=== PATIENT | female | born 1955 | race Caucasian/White ===

== ENCOUNTER 2023-03-13 07:15 | Outpatient (REF) | payer MEDICARE, SELFPAY ==
--- NOTE | ~2023-03-13 | CT_ITS ---
EXAMINATION: CT head/brain wo IV con CLINICAL INFORMATION: Reason for Exam CONGENITAL HYDROCEPHALUS COMPARISON: CT brain 02/24/2016 TECHNIQUE: Contiguous axial imaging was performed from the skull base to vertex without intravenous contrast. Sagittal and coronal reformatted images were obtained. This CT examination was performed using dose optimization techniques as appropriate, variously including the following: * Automated exposure control * Adjustment of mA and/or kV according to patient size (this includes techniques or standardized protocols for targeted exams where dose is matched to indication/reason for exam; i.e. extremities or head) Use of iterative reconstruction technique DLP: 871.7 mGy-cm mGy-cm FINDINGS: Left frontal approach and left parietal approach ventriculostomy catheters appear stable in position. Redemonstrated severe enlargement of the lateral and third ventricles with a normal appearance of the fourth ventricle. Ventricular caliber is not significantly changed compared to the prior examination. No midline shift. The basal cisterns are preserved. Stable dural thickening along the bilateral cerebral convexities. No acute intracranial hemorrhage or territorial loss of ibarra-white differentiation. Stable dysmorphic appearance of the right lateral ventricle frontal horn. Intracranial atherosclerotic calcification is noted. Bilateral intraocular lens replacements. The partially visualized paranasal sinuses have trace mucosal thickening. The mastoid air cells are well-aerated. Prior right parietal craniotomy. CT/CT head/brain wo IV con IMPRESSION: Stable shunted hydrocephalus involving the lateral and third ventricles.
== END 2023-03-13 07:16 | disposition home or self-care (01) ==
LOC: HO.CT 07:15
PROVIDERS: Visit Provider Psychiatry & Neurology Neurology
DX: Q03.9 Congenital hydrocephalus, unspecified (principal)
CPT/HCPCS: 70450

== ENCOUNTER 2025-01-12 12:51 | Outpatient (AMB) | payer MEDICARE, SELFPAY ==
--- NOTE | 2025-01-12 12:56 | A.OFFVIS_ITS ---
Intake Visit Reasons: last seen 2022 Allergies morphine (MORPHINE) Allergy (Unknown, Unverified 02/18/20 16:57) MAKES HER SICK/VOMITING HPI Comments Details: 69 years old woman with congenital hydrocephalus, status post ventriculoperitoneal shunting, and chronic cognitive dysfunction. 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 She was few months old when she had the first shunting procedure done. Over the years shunt has been re vised. I initially saw her in 2015 and then also in 2022 after which a head CT was repeated because of worsening of balance. It revealed stable severe hydrocephalus with a shunt. [facility] Medical History (Updated 01/12/25 @ 13:01 by Manny Kemp MD) Chronic static encephalopathy Congenital hydrencephalus Surgical History (Updated 01/12/25 @ 13:00 by Manny Kemp MD) S/P FIRE ALARM MECHANIC shunt Review of Systems Const Details: No seizures, no headaches. No change in gait. Bladder control is with leaks Physical Exam Neuro Other: Mental Status: Alert and oriented to person, place, and time. Normal attention. Normal spontaneous speech, fluency, and comprehension. Cranial Nerves: CN II: Visual serrano full to confrontation, visual acuity intact. CN III, IV, : Pupils equal, round, reactive to light and accommodation. Extraocular movements are normal. CN V: Facial sensation is normal. CN VII: Facial movements symmetrical. CN VIII: Hearing intact to bedside conversation is normal. CN IX, X: Palate elevates symmetrically. CN XI: Shoulder shrug and head turn symmetrical. CN XII: Tongue midline without atrophy or fasciculations. Gait: Walking w quad cane Extrapyramidal: Full facial expressions and blinking. No rigidity. Movements are appropriate with no tremor or abnormality. Speech: Normal; no dysarthria or tremor. Assessment & Plan Assessment & Plan (1) Congenital hydrencephalus: Comment: CT brain WO at [facility] [place] in 2022: Severe hydrocephalus with a shunt Code(s): Q03.9 - Congenital hydrocephalus, unspecified Category: Medical (2) S/P FIRE ALARM MECHANIC shunt: Code(s): Z98.2 - Presence of cerebrospinal fluid drainage device Category: Surgical (3) Chronic static encephalopathy: Code(s): G93.49 - Other encephalopathy Category: Medical Plan Impression: a: Congenital hydrocephalus b: S/P FIRE ALARM MECHANIC shunting c: Chronic static encephalopathy from above, moderate, stable. She is cared by her sister. d: Leg edema Rec: a: Common sense measures to avoid falls and accidents, like avoiding stairs b: Stay socially and physically active c: F/U with PCP for leg edema d: Permanently excused from Jury duty Rec: Orders: Orders Vitamin B12 and Folate Today Q03.9 - Congenital hydrocephalus, unspecified Coding Level of Care Code Tele Est Pt Level 4 (40943) Diagnoses Congenital hydrencephalus Q03.9 S/P FIRE ALARM MECHANIC shunt Z98.2 Chronic static encephalopathy G93.49
--- OUTSIDE RECORDS SUMMARY | 2025-01-12 13:32 | XMS_ITS ---
Author Name [facility] Organization Unknown Care Team Organization Name Specialty Phone Email Start Date End Da te [facility] KAYLEE HARRIS Primary Care 04/10/2022 01/20/20 24
--- OUTSIDE RECORDS SUMMARY | 2025-01-12 13:32 | XMS_ITS | Encounter Summary ---
Author Organization [facility] Address [id number] [place] [id number] Care Team Providers Care Supervisor Electric Name Role Phone Juan Carlos Nguyen MD Primary Care Provider [phone] Reason for Visit * Reason Onset Date Comments DME 01/12/2025 Encounter Details Date Type Department Care Team ([facility] st Contact Info) Description 01/12/2025 Telephone Internal Medicine - [place] [address] [facility] [address] [place] [id number] Juan Carlos Nguyen MD [address] [facility] [address] [place] [address] DME Social History Tobacco Use Types Packs/Day Years Used Date Smoking Tobacco: Never Smokeless Tobacco: Never Alcohol Use Standard Drinks/Week Comments No 0 (1 standard drink = 0.6 oz pur e alcohol) Comments Unknown Sex and Gender Information Value Date Recorded Sex Assigned at Not on file Legal Sex Female 4:05 PM EST Gender Identity Not on file Sexual Orientation Not on file documented as of this encounter Progress Notes * Merline Quintana MA - 01/12/2025 11:53 AM EDT Pended. * Va Faye - 01/12/2025 11:47 AM EDT Name of Product: Pull ups Specific information about product XL # Needed usual amount Reason patient is asking for this supply? incontinence Have you received this supply before? If yes , when?: yes. Has Patient been seen in the last 6 months yes If NO, Please book appt before DME can be ordered Have you discussed the need for this supply with a provider at a recent visit? no If yes, with who and when? No Child Life Appt necessary When completed, SHIPPING ADDRESS: [address] [place] [phone] Have you told the patient it will take 7-10 days for completion of this request? Yes documented in this encounter Plan of Treatment Upcoming Encounters Date Type Department Care Team (Late st Contact Info) Description 05/18/2025 11:00 AM EST Office Visit Internal Medicine - [place] [address] [phone] Juan Carlos Nguyen MD [address] [id number] documented as of this encounter Visit Diagnoses Diagnosis Urinary incontinence, unspecified type- Primary documented in this encounter Additional Health Concerns Assessment Noted Time PHQ-9 Depression Total Score: 9 10/02/19 25 11:49 AM EDT A fall risk assessment has been complete d for the patient 10/01/2024 11:44 AM EDT documented as of this encounter Care Teams Supervisor Electric Relationship Specialty Start Date End Date Juan Carlos Nguyen MD [address] [place] [phone] PCP - General Internal Medicine 09/04/21 documented as of this encounter
--- OUTSIDE RECORDS SUMMARY | 2025-01-12 13:32 | XMS_ITS | Clinical Summary ---
Author Organization [facility] Address [address] [place] [phone] Phone Care Team Providers Care Joint Sealer Name Role Phone Pcp, Unknown Primary Care Provider Unavailabl e Allergies Active Allergy Reactions Criticality Noted Date Comments Morphine 04/26/2023 Sulfa (Sulfonamide Antibiotics) 04/04 Medications * This document contains information received from the source organization and may not represent a complete record from that organization. melatonin 5 mg Tab Take 2 tablets (10 mg total) by mouth nightly at bedtime. 30 tablet 05/01/2023 Active pantoprazole (PROTONIX) 40 MG tablet Take 1 tablet (40 mg total) by mouth daily. 30 tablet 05/01/2023 Active traZODone (DESYREL) 100 MG tablet Take 1 tablet (100 mg total) by mouth nightly at bedtime. 30 tablet 05/01/2023 Active FLUoxetine (PROZAC) 20 MG capsule Take 1 capsule (20 mg total) by mouth daily. 30 capsule 05/02/2023 Active Active Problems Problem Noted Date Diagnosed Date Major depressive disorder, recurrent 04/26/2023 Assessment & Plan (04/27/2023 3:25 PM EST): Overactive bladder 04/26/2023 Osteoporosis 04/26/2023 Congenital hydrocephalus 04/26/2023 Cognitive impairment 04/26/2023 Ambulatory dysfunction 04/26/2023 Family History Medical History Relation Comments Diabetes Mother Heart disease Mother Hypertension Mother Breast cancer Sister 1 Ovarian cancer Sister 2 Relation Status Comments Mother Sister 1 Sister 2 Social History Tobacco Use Types Packs/Day Years Used Date Smoking Tobacco: Never Passive Smoke Exposure: Never Smokeless Tobacco: Never Tobacco Cessation:Counseling Given: No Education Answer Date Recorded Are you interested in more education? Not on tamera e 04/26/2023 Are you concerned about learning? Not on file 04/26/2023 No 04/26/2023 No 04/26/2023 Digital Access Answer Date Recorded No 04/26/2023 No 04/26/2023 Reliable internet access at home? Not on file 04/26/2023 Device with a working camera? Not on file Intimate Partner Violence Answer Date R ecorded Are you denied basic needs s uch as food, clothing, or medical care? No 04/26/2023 In the past 12 months have y ou been in a relationship with a person who hurts, threatens, or tries to control you? No 04/26/2023 Are you denied basic needs s uch as food, clothing, or medical care? No 04/26/2023 In the past 12 months have y ou been in a relationship with a person who hurts, threatens, or tries to control you? No 04/26/2023 Comments Unknown Sex and Gender Information Value Date Recorded Sex Assigned at Not on file Legal Sex Female 6:09 PM EST Gender Identity Not on file Sexual Orientation Not on file Last Filed Vital Signs Vital Sign Reading Time Taken Comments Blood Pressure 104/62 05/01/2023 8:18 AM EST Pulse 98 05/01/2023 8:18 AM EST Temperature 36.9 C (98.4 F) 05/01/2023 8:18 AM EST Respiratory Rate 16 05/01/2023 8:18 AM EST Oxygen Saturation 96% 05/01/2023 8:18 AM EST Inhaled Oxygen Concentration - - Weight 69.2 kg (152 lb 8 oz) 04/26/2023 8:00 PM EST Height 152.4 cm (5') 04/26/2023 8:00 PM EST Body Mass Index 29.78 04/26/2023 8:00 PM EST Plan of Treatment Health Maintenance Due Date Last Done Comments LIPID PANEL 1957 DEPRESSION SCREENING 1969 HEPATITIS C SCREENING 10/13/1975 SCREENING FOR DIABETES 1992 MAMMOGRAM 1997 COLOGUARD 2002 COLONOSCOPY 2002 COLORECTAL CANCER SCREENING 2002 FIT TEST 2002 FOBT 2002 SIGMOIDOSCOPY 2002 VIRTUAL COLONOSCOPY 2002 PNEUMOCOCCAL VACCINES (50+ y ears) (1 of 1 - PCV) 10/13/2007 ZOSTER VACCINES (1 of 2) 10/13/2007 OSTEOPOROSIS SCREENING INITI AL (ONE-TIME) 2022 COVID-19 VACCINE (1 - 2023-2 5 season) 2024 Adult Td,Tdap Booster 02/11/2028 02/10/2018 RSV VACCINE (1 - 1-dose 75+ series) 2032 SMOKING STATUS SCREENING (On ce After 26 Yrs) Completed 04/26/2023 HEPATITIS A VACCINES Aged Out No long er eligible based on patient's age to complete this topic HIB VACCINES Aged Out No longer eligi ble based on patient's age to complete this topic MENINGOCOCCAL VACCINES (ACWY) Aged Out No longer eligible based on patient's age to complete this topic MENINGOCOCCAL VACCINES (B) Aged Out N o longer eligible based on patient's age to complete this topic Medical Devices Not on file Insurance [facility] MEDICARE REPLACEMENT [facility] MEDICARE REPLACEMENT MEDICARE REPLACEMENT MEDICARE REPLACEMENT MEDICARE REPLACEMENT [facility] [employer] MEDICARE REPLACEMENT Advance Directives For more information, please contact: [phone] (9AM - 5PM [facility], Saturday-Saturday) * Full Code (Latest Code Status on File) Date Activated Date Inactivated Comments 04/26/2023 7:54 PM Question Answer Comments Code Status Confirmed With: Other (specify below ) Code Discussion Comments: chart review Care Teams Joint Sealer Relationship Specialty Start Date End Date Pcp, Unknown PCP - General 04/26/23 Additional Source Comments The information contained in this document represents components of the legal health record. It is not the complete legal health record.[facility]
== END 2025-01-12 13:14 | disposition home or self-care (01) ==
LOC: HO.HSM 12:52
PROVIDERS: PCP Internal Medicine; Referring Provider Internal Medicine; Visit Provider Psychiatry & Neurology Neurology
DX: Q03.9 Congenital hydrocephalus, unspecified (principal); Z98.2 Presence of cerebrospinal fluid drainage device; G93.49 Other encephalopathy
CPT/HCPCS: 99214

== ENCOUNTER → 2025-01-12 12:51 | Outpatient (BNVA) | payer OTHER, SELFPAY | PROVIDERS: PCP Internal Medicine; Referring Provider Internal Medicine; Visit Provider Psychiatry & Neurology Neurology | DX: Q03.9 Congenital hydrocephalus, unspecified (principal); G93.49 Other encephalopathy; Z98.2 Presence of cerebrospinal fluid drainage device | CPT/HCPCS: 99212 ==